=== PATIENT | male | born 1990 | race Caucasian/White ===

== ENCOUNTER 2019-07-02 09:04 | Emergency (ER) | payer BC ==
[~2019-07-02] VITALS: Ht 172.7 cm; Wt 159.7 kg
[2019-07-02] MEDS ORDERED: IBUPROFEN600 MG PO (09:22)
[2019-07-02] MEDS ORDERED: ROBAXIN-750750 MG PO (09:22)
[2019-07-02 09:32] VITALS: BP 133/77
== END 2019-07-02 09:30 | disposition home or self-care (01) ==
LOC: FSED 09:04
DX: S16.1XXA Strain of muscle, fascia and tendon at neck level, initial encounter (principal); S39.012A Strain of muscle, fascia and tendon of lower back, initial encounter; V53.6XXA Passenger in pick-up truck or van injured in collision with car, pick-up truck or van in traffic accident, initial encounter; Y92.488 Other paved roadways as the place of occurrence of the external cause; I10 Essential (primary) hypertension
CPT/HCPCS: 99282